=== PATIENT | female | born 1980 | race African-American/Black ===

== ENCOUNTER 2017-01-17 20:31 | Emergency (ER) | payer OTHER ==
[2017-01-17 20:55] VITALS: BP 118/79
--- NOTE | 2017-01-17 21:31 | RAD ---
INDICATION: Bimalleolar ankle pain after injury COMPARISON: None. TECHNIQUE: 3 views of the left ankle were obtained. FINDINGS: There is soft tissue swelling overlying the fibular malleolus greater than the tibial. The well corticated bones exhibit normal alignment. Joint spaces appear maintained. No fracture is seen. IMPRESSION: SOFT TISSUE SWELLING OVERLYING THE FIBULAR MALLEOLUS WITHOUT UNDERLYING FRACTURE OR DISLOCATION. If the patient's symptoms persist, follow-up imaging is recommended.
--- NOTE | 2017-01-17 23:02 | ED ---
Lower Extremity - HPI Summary HPI Summary: 36F presents with left ankle pain today. She rolled her ankle while playing volleyball. She has not been able to ambulate on it since. She denies any numbness or tingling. She had previous 5th metatarsal fracture. took ibuprofen for pain. - History of Current Complaint Chief Complaint: EDExtremityLower Stated Complaint: LT ANKLE INJURY Time Seen by Provider: 01/17/17 22:59 Pain Intensity: 6 - Allergies/Home Medications Allergies/Adverse Reactions: Allergies Allergy/AdvReac Type Severity Reaction Status Date / Time Erythromycin Allergy Nausea And Verified 02/27/15 06:59 Vomiting PMH/Surg Hx/FS Hx/Imm Hx Endocrine/Hematology History: Denies: Hx Diabetes, Hx Systemic Lupus Erythematosus Cardiovascular History: Denies: Hx Congestive Heart Failure, Hx Hypertension, Hx Pacemaker/ICD History: Denies: Hx Dialysis, Hx Renal Disease Musculoskeletal History: Denies: Hx Rheumatoid Arthritis, Hx Osteoporosis Sensory History: Denies: Hx Hearing Aid Psychiatric History: Denies: Hx Panic Disorder - Cancer History Cancer Type, Location and Year: RT BREAST CANCER JUST DIAGNOSED Hx Chemotherapy: Yes - chemo to shrink tumor first Hx Radiation Therapy: Yes - finished 10/31/15 - Surgical History Surgery Procedure, Year, and Place: APPENDECTOMY 1991, RT BREAST BIOPSY WITH MARKER 02/06/15, RT LUMPECTOMY 08/31 Infectious Disease History: No Infectious Disease History: Denies: Traveled Outside the [place] in Last 30 Days - Family History Known Family History: Positive: Cardiac Disease - Social History Alcohol Use: Weekly Alcohol Amount: 4 Substance Use Type: Reports: None Smoking Status (MU): Never Smoked Tobacco Have You Smoked in the Last Year: No Review of Systems Negative: Fever Negative: Chest Pain Negative: Shortness Of Breath Positive: Myalgia - left ankle pain All Other Systems Reviewed And Are Negative: Yes Physical Exam Triage Information Reviewed: Yes Vital Signs On Initial Exam: Initial Vitals Temp Pulse Resp BP Pulse Ox 97.4 F 70 18 118/79 100 01/17/17 20:47 01/17/17 20:47 01/17/17 20:47 01/17/17 20:47 01/17/17 20:47 Vital Signs Reviewed: Yes Appearance: Positive: Well-Appearing Skin: Positive: Warm, Dry Head/Face: Positive: Normal Head/Face Inspection Eyes: Positive: Normal, Conjunctiva Clear Respiratory/Lung Sounds: Positive: Clear to Auscultation, Breath Sounds Present Cardiovascular: Positive: Normal, RRR Musculoskeletal: Positive: Limited @ - left ankle, Other - good pulses, capillary refill<2secs, tenderness over lateral aspect of left ankle Diagnostics - Vital Signs Vital Signs Temp Pulse Resp BP Pulse Ox 01/17/17 20:47 97.4 F 70 18 118/79 100 - Laboratory Lab Statement: Any lab studies that have been ordered have been reviewed, and results considered in the medical decision making process. - Radiology ankle Xray Interpretation: No Acute Changes Radiology Interpretation Completed By: Radiologist Lower Extremity Course/Dx - Course Course Of Treatment: 36F presents with left ankle pain today. She rolled her ankle while playing volleyball. She has not been able to ambulate on it since. She denies any numbness or tingling. She had previous 5th metatarsal fracture. took ibuprofen for pain. on exam has swelling to lateral left ankle, neurovascular intact. xray normal. will place in walking boot and crutches. will treat with RICE. patient understands and agrees with plan. - Diagnoses Differential Diagnosis/HQI/PQRI: Positive: Fracture (Closed), Sprain, Strain Provider Diagnoses: Left ankle injury Discharge - Discharge Plan Condition: Good Disposition: HOME Patient Education Materials: Ankle Sprain (ED) Referrals: Nicole Thomas MD [Primary Care Provider] - Additional Instructions: Stay off ankle as much as possible Ice, elevate Ibuprofen every 6 hours for pain Follow up with primary if no improvement with in a week Return to ED if develop any new or worsening symptoms
== END 2017-01-17 23:52 | disposition home or self-care (01) ==
LOC: ED 20:31
DX: S99.912A Unspecified injury of left ankle, initial encounter (principal); X50.1XXA Overexertion from prolonged static or awkward postures, initial encounter; Y93.68 Activity, volleyball (beach) (court); Y92.9 Unspecified place or not applicable; C50.911 Malignant neoplasm of unspecified site of right female breast
CPT/HCPCS: 99282

== ENCOUNTER 2018-09-24 20:19 | Emergency (ER) | payer OTHER ==
--- NOTE | 2018-09-24 20:33 | UC ---
Complaint Female HPI - HPI Summary HPI Summary: urinary frequesncy---wants to be sure she does not have a UTI - History Of Current Complaint Chief Complaint: UCGU Stated Complaint: SIDE PAIN, AND FREQUENT URINATION Time Seen by Provider: 09/24/18 20:31 Hx Obtained From: Patient ?: No Onset/Duration: Gradual Onset, Lasting Days, Still Present Pain Scale Used: 0-10 Numeric Aggravating Factor(s): Nothing Alleviating Factor(s): Nothing Associated Signs And Symptoms: Positive: Negative - Allergies/Home Medications Allergies/Adverse Reactions: Allergies Allergy/AdvReac Type Severity Reaction Status Date / Time erythromycin base Allergy Nausea And Verified 09/24/18 20:40 Vomiting Home Medications: Home Medications Cholecalciferol (Vitamin D3) [Vitamin D3] 1,000 unit PO DAILY 09/24/18 [History Confirmed 09/24/18] Tamoxifen TAB* [Nolvadex*] 10 mg PO DAILY 09/24/18 [History Confirmed 09/24/18] traZODone TAB* [Desyrel TAB*] 50 mg PO BEDTIME 09/24/18 [History Confirmed 09/24] PMH/Surg Hx/FS Hx/Imm Hx Previously Healthy: No Cancer History: Breast Cancer - Surgical History Surgical History: Yes Surgery Procedure, Year, and Place: APPENDECTOMY 1991;. RT BREAST BIOPSY WITH MARKER 02/06/15;. RT LUMPECTOMY WITH AXILLA NODES REMOVAL 08/31; - Family History Known Family History: Positive: Cardiac Disease - Social History Occupation: Employed Full-time Lives: With Family Alcohol Use: Weekly Alcohol Amount: 4 Substance Use Type: None Smoking Status (MU): Never Smoked Tobacco Have You Smoked in the Last Year: No Review of Systems All Other Systems Reviewed And Are Negative: Yes Constitutional: Positive: Negative Skin: Positive: Negative Eyes: Positive: Negative ENT: Positive: Negative Respiratory: Positive: Negative Cardiovascular: Positive: Negative Gastrointestinal: Positive: Negative Genitourinary: Positive: Frequency Motor: Positive: Negative Neurovascular: Positive: Negative Musculoskeletal: Positive: Negative Neurological: Positive: Negative Psychological: Positive: Negative Is Patient Immunocompromised?: No Physical Exam Triage Information Reviewed: Yes Appearance: Well-Appearing, No Pain Distress, Well-Nourished Vital Signs Reviewed: Yes Eye Exam: Normal Eyes: Positive: Conjunctiva Clear ENT Exam: Normal ENT: Positive: Normal ENT inspection, Hearing grossly normal. Negative: Trismus , Muffled voice, Hoarse voice Dental Exam: Normal Neck exam: Normal Neck: Positive: Supple, Nontender Respiratory Exam: Normal Respiratory: Positive: Chest non-tender, No respiratory distress, No accessory muscle use Cardiovascular Exam: Normal Cardiovascular: Positive: RRR, Pulses Normal, Brisk Capillary Refill Abdominal Exam: Normal Abdomen Description: Positive: Nontender, No Organomegaly, Soft. Negative: CVA Tenderness (R), CVA Tenderness (L), McBurney's Point Tenderness Bowel Sounds: Positive: Present Musculoskeletal Exam: Normal Musculoskeletal: Positive: Strength Intact, ROM Intact, No Edema Neurological Exam: Normal Neurological: Positive: Alert, Muscle Tone Normal Psychological Exam: Normal Skin Exam: Normal Complaint Female Dx - Course Course Of Treatment: increase fluids, tylenol, ibuprofen for pain follow with pcp or to ed for worsening symptoms - Differential Dx/Diagnosis Provider Diagnosis: Urinary frequency Discharge - Sign-Out/Discharge Documenting (check all that apply): Patient Departure All imaging exams completed and their final reports reviewed: No Studies - Discharge Plan Condition: Stable Disposition: HOME Patient Education Materials: Dysuria (ED) Referrals: Nicole Thomas MD [Primary Care Provider] - 1 Week - Billing Disposition and Condition Condition: STABLE Disposition: Home - Attestation Statements Provider Attestation: I was available for consult. This patient was seen by the [facility]. The patient was not presented to , seen by or examined by k[facility] -Sarah Esposito MD
[2018-09-24 20:39] VITALS: BP 117/72
== END 2018-09-24 21:36 | disposition home or self-care (01) ==
LOC: UCEAST 20:19
DX: R35.0 Frequency of micturition (principal); Z88.1 Allergy status to other antibiotic agents; Z85.3 Personal history of malignant neoplasm of breast
CPT/HCPCS: 81003; 84702; 99211; G0463